=== PATIENT | female | born 1995 | race Caucasian/White ===

== ENCOUNTER 2019-11-14 18:10 | Emergency (ER) | payer OTHER ==
--- NOTE | 2019-11-14 19:47 | ER Document Report ---
ED Medical Screen (RME) - General Chief Complaint: Vaginal Bleeding Stated Complaint: VAGINAL BLEEDING/ABDOMINAL PAIN Time Seen by Provider: 11/14/19 19:39 Mode of Arrival: Wheelchair Notes: HPI; 24-year-old female who states she is 18 weeks presents to the emergency room complaining of pelvic cramping decreased movement for 2 days. Patient states she saw her OB 3 days ago with a normal ultrasound. Patient states she took a nap and when she woke up and went to go to the bathroom when she wiped she noticed a spot of bright red blood. Has not seen any blood since. PE: Alert and oriented x3. Mild distress noted. Lungs were clear to auscultation without rales rhonchi or wheezes. Heart regular rate rhythm without murmurs rubs or gallops. Gravid abdomen. Nontender to palpation. I have greeted and performed a rapid initial assessment of this patient. A comprehensive ED assessment and evaluation of the patient, analysis of test results and completion of the medical decision making process will be conducted by additional ED providers. I have specifically instructed the patient or family members with the patient to immediately return to any nursing staff should anything change in the patient's condition or with their chief complaint. TRAVEL OUTSIDE OF THE [place] IN LAST 30 DAYS: No Physical Exam - Vital signs Vitals: Temp Pulse Resp BP Pulse Ox 98.7 F 89 14 121/55 L 99 11/14/19 18:13 11/14/19 18:13 11/14/19 18:13 11/14/19 18:13 11/14/19 18:13 Course - Vital Signs Vital signs: Temp Pulse Resp BP Pulse Ox 98.7 F 89 14 121/55 L 99 11/14/19 18:13 11/14/19 18:13 11/14/19 18:13 11/14/19 18:13 11/14/19 18:13
[2019-11-14 20:58] LABS: ABSOLUTE BASOPHILS # (AUTO) 0.1 10^3/uL (0.0-0.2); ABSOLUTE EOSINOPHILS # (AUTO) 0.1 10^3/uL (0.0-0.6); ABSOLUTE MONOCYTES (AUTO) 0.8 10^3/uL (0.1-1.4); ABSOLUTE NEUT (AUTO) 7.9 10^3/uL (1.7-8.2); BASOPHILS % (AUTO) 0.5 % (0-2); EOSINOPHILS % (AUTO) 1.1 % (0-6); HEMATOCRIT 36.7 % (36.0-47.0); HEMOGLOBIN 13.2 g/dL (12.0-15.5); LYMPHOCYTES % (AUTO) 18.5 % (13-45); MEAN CORPUSCULAR HEMOGLOBIN 33.2 pg (27.0-33.4); MEAN CORPUSCULAR HGB CONC 35.8 g/dL (32.0-36.0); MEAN CORPUSCULAR VOLUME 93 fl (80-97); MONOCYTES % (AUTO) 7.4 % (3-13); PLATELET COUNT 260 10^3/uL (150-450); RED BLOOD COUNT 3.96 10^6/uL (3.72-5.28); RED CELL DISTRIBUTION WIDTH 12.5 % (11.5-14.0); SEGMENTED NEUTROPHILS % (AUTO) 72.5 % (42-78); TOTAL CELLS COUNTED % (AUTO) 100 %; WHITE BLOOD COUNT 10.9 10^3/uL (4.0-10.5)
[2019-11-14 21:06] LABS: AMORPHOUS SEDIMENT,URINE TRACE /HPF; APPEARANCE,URINE CLEAR; BILIRUBIN,URINE NEGATIVE (NEGATIVE); COLOR,URINE YELLOW; GLUCOSE, URINE NEGATIVE (NEGATIVE); KETONES,URINE NEGATIVE (NEGATIVE); LEUKOCYTE ESTERASE,URINE NEGATIVE (NEGATIVE); NITRITE,URINE NEGATIVE (NEGATIVE); PROTEIN,URINE NEGATIVE (NEGATIVE); UROBILINOGEN,URINE NEGATIVE mg/dL (<2.0)
[2019-11-14 21:14] LABS: ALBUMIN 4.3 g/dL (3.5-5.0); ALKALINE PHOSPHATASE 77 U/L (38-126); ANION GAP 8 (5-19); ASPARTATE AMINO TRANSFERASE 32 U/L (14-36); BILIRUBIN,TOTAL 0.5 mg/dL (0.2-1.3); BLOOD UREA NITROGEN 7 mg/dL (7-20); CALCIUM 9.6 mg/dL (8.4-10.2); CARBON DIOXIDE 24 mmol/L (22-30); CHLORIDE 102 mmol/L (98-107); GLUCOSE 81 mg/dL (75-110); POTASSIUM 4.1 mmol/L (3.6-5.0); TOTAL PROTEIN 7.8 g/dL (6.3-8.2)
--- NOTE | 2019-11-14 21:36 | RADIOLOGY REPORT (SQ) ---
EXAM DESCRIPTION: US FOLLOW UP COMPLETED DATE/TME: 11/14/2019 19:44 CLINICAL HISTORY: 24 years, Female, pain COMPARISON: None. TECHNIQUE: Axial 2-D grayscale images of the pelvis were acquired. Doppler was utilized. LIMITATIONS: None. FINDINGS: Single live intrauterine is identified with measurements as follows: Cervix is closed, measuring 2.9 cm in length. Biparietal diameter: 4.38 cm Head circumference: 16.89 cm Abdominal circumference: 15.49 cm Femoral length: 3.02 cm Estimated weight is 324 g (11 ounces). Estimated gestational age is 19 weeks and 6 days for an estimated date of delivery of 04/03/2020 heart rate is 155 bpm Placenta is posterior, grade one Presentation is breech The distance of the placenta tip to the internal os of the cervix is 2.6 cm. Largest vertical pocket of amniotic fluid is 4.1 cm. IMPRESSION: Single live intrauterine , as above. No acute findings. Low-lying placenta. Continued surveillance is suggested. copyright 2010 [employer]- All Rights Reserved
--- NOTE | 2019-11-14 22:08 | ER Document Report ---
ED General - General Chief Complaint: OB Problem (<20wks) Stated Complaint: VAGINAL BLEEDING/ABDOMINAL PAIN Time Seen by Provider: 11/14/19 19:39 Primary Care Provider: BRIANNA VELOZ PA [Primary Care Provider] - Follow up as needed Mode of Arrival: Wheelchair TRAVEL OUTSIDE OF THE [place] IN LAST 30 DAYS: No - HPI Notes: Patient is a G3, P1 female approximately 18 weeks gestation who presents to the emergency department for evaluation of abdominal pain and a small amount of blood. She states that her and her had intercourse yesterday. Today s he had a stretching and painful sensation in her mid abdomen, just inferior to her umbilicus. She states that after urination today she noticed a small bright red spot on the toilet paper. She has had no continued bleeding. The pain has stopped. She presents to the emergency department for further evaluation. She had an ultrasound on the first, is scheduled to see her OB again in 3 weeks. Sh e states that after the first is when she started feeling some movement, but notes that it has been decreased to her sensation for the last 2 days. - Related Data Home Medications: vitamins Past Medical History - General Information source: Patient - Social History Smoking Status: Never Smoker Drug Abuse: None Family History: Reviewed & Not Pertinent Patient has homicidal ideation: No Review of Systems - Review of Systems Female Genitourinary: See HPI -: Yes All other systems reviewed and negative Physical Exam - Vital signs Vitals: Temp Pulse Resp BP Pulse Ox 98.7 F 89 14 121/55 L 99 11/14/19 18:13 11/14/19 18:13 11/14/19 18:13 11/14/19 18:13 11/14/19 18:13 - Notes Notes: Vital signs reviewed, please refer to chart. Head is normocephalic, atraumatic. Pupils equal round, reactive to light. Neck is supple without meningismus. Heart is regular rate and rhythm. Lungs are clear to auscultation bilaterally. Abdomen is gravid, nontender, normoactive bowel sounds throughout. Extremities without cyanosis, clubbing. Posterior calves are nontender. Peripheral pulses are equal. Skin is warm and dry. Patient is awake, alert, neurological exam is nonfocal. Course - Re-evaluation Re-evalutation: 11/14/19 22:06 Patient presents to the emergency department for evaluation. She had laboratory investigations as ordered through triage. Her ultrasound was unremarkable. Her cervix is closed. She had only a tiny amount of blood present on toilet paper, she is not continuing to bleed at this time. I think it was likely from intercourse. She is told she should call her primary OB tomorrow, which is [facility], and discussed the symptom. Otherwise she is not bleeding at this time, has no pain, and is stable for outpatient follow-up. She is to r eturn to the ED with worsening. - Vital Signs Vital signs: Temp Pulse Resp BP Pulse Ox 98.7 F 89 14 121/55 L 99 11/14/19 19:42 11/14/19 18:13 11/14/19 18:13 11/14/19 18:13 11/14/19 18:13 - Laboratory Result Diagrams: 11/14/19 19:50 11/14/19 19:50 Laboratory results interpreted by me: 11/14/19 11/14/19 11/14/19 19:50 19:50 19:50 WBC 10.9 H Sodium 134.2 L Urine Blood SMALL H Discharge - Discharge Clinical Impression: Second trimester bleeding Condition: Stable Disposition: HOME, SELF-CARE Instructions: Bleeding During Early ([facility]) Additional Instructions: Your ultrasound and blood work here today were normal. Please contact your OB for appropriate follow-up, discussed the small amount of bleeding you had today. If you start having heavier bleeding, increased pain, or any other new or concerning symptoms, please return immediately to the emergency department for evaluation. Referrals: BRIANNA VELOZ PA [Primary Care Provider] - Follow up as needed
[2019-11-14 22:28] VITALS: BP 115/60
== END 2019-11-14 22:26 | disposition home or self-care (01) ==
LOC: ER 18:10
DX: O46.92 Antepartum hemorrhage, unspecified, second trimester (principal); O26.892 Other specified pregnancy related conditions, second trimester; R10.33 Periumbilical pain; O36.8120 Decreased fetal movements, second trimester, not applicable or unspecified; Z3A.00 Weeks of gestation of pregnancy not specified; Z79.899 Other long term (current) drug therapy
CPT/HCPCS: 36415; 76805; 80053; 81001; 85025; 93976; 99284